=== PATIENT | female | born 1965 | race Caucasian/White ===

== ENCOUNTER 2019-02-16 09:36 | Day surgery (SDC) | payer OTHER ==
[2019-02-16] MEDS ORDERED: FENTAnyl 50 MCG/ML VIAL (11:59)
[2019-02-16] MEDS ORDERED: MIDAZOLAM 1 MG/ML 2 ML INJ ×2 (12:00)
== END 2019-02-16 14:14 | disposition home or self-care (01) ==
LOC: GIL 09:36
DX: K64.8 Other hemorrhoids (principal)
CPT/HCPCS: 45378; 82962